=== PATIENT | female | born 1935 | race Caucasian/White ===

== ENCOUNTER → 2017-02-07 | Outpatient (CLI) | payer MEDICARE, BC ==
[~2017-02-07] MED LIST: ACET-3088 PO; ASPI-611 PO; CHOL50006 PO; LISI-126; OMEG-123 PO
--- NOTE | 2017-02-08 10:22 | ECHOF ---
ECHOCARDIOGRAM REPORT DATE OF PROCEDURE February 07, [address] Guillermo Casillas This is a two-dimensional echo with spectral Doppler, color-flow and M-mode. It was obtained in a patient for preop evaluation. Left atrial dimension is normal. Left ventricle end-diastolic dimension is normal. Left ventricle wall thickness is normal. LV systolic function is normal with ejection fraction of 60%. Right atrium is normal. Right ventricle is normal. Aortic root dimension is normal. Mitral valve annulus is calcified. Mitral valve leaflets are normal with no stenosis. Mild mitral regurgitation is present. Aortic valve shows fibrocalcific changes. Opening motion is restricted with increased velocity across the aortic valve. Peak velocity across the aortic valve is 4.33 meters per second with peak gradient of 75 and mean gradient of 44. Aortic valve area is calculated at 1.19 cm2. There is no aortic insufficiency. Tricuspid valve shows mild tricuspid regurgitation with normal estimated pulmonary artery systolic pressure of 31. Pulmonary valve shows mild pulmonary insufficiency. There is no pericardial effusion. IMPRESSION 1. Normal LV systolic function with ejection fraction of 60%. 2. At least moderate aortic insufficiency with aortic valve area of 1.19 cm2. However, it appears to be severe stenosis by gradient. 3. Mitral annulus calcification with mild mitral regurgitation. 4. Mild pulmonary insufficiency. 5. Mild tricuspid regurgitation with estimated pulmonary artery systolic pressure of 31. MTDD
== END ==
LOC: IMA 15:12
PROVIDERS: ATTEND Family Medicine
DX: I08.8 Other rheumatic multiple valve diseases (principal)
CPT/HCPCS: 93306

== ENCOUNTER 2017-02-26 10:35 | Outpatient (CLI) | payer MEDICARE, BC ==
[~2017-02-26] VITALS: Ht 157.5 cm; Wt 75.1 kg
[2017-02-26] VITALS (18 sets, daily range): BP systolic 121–188; BP diastolic 58–91; PULSE 54–76; RESP 13–20; TEMP 98.3; O2SAT 93–100; Ht 157.5 cm; Wt 75.1 kg
[~2017-02-26 10:35] MED LIST changes: +AMLO5TAB2 PO; -LISI-126; +LISI40TA4 PO
--- NOTE | 2017-02-26 10:45 | NUR ---
ADMISSION PATIENT ADMITTED TO ROOM 126 AT THIS TIME. PT AMBULATORY TO ROOM. PT APPEARS IN NO ACUTE DISTRESS. AT BEDSIDE. WILL CONTINUE TO MONITOR.
[2017-02-26] MEDS ORDERED: ASPI325T PO (11:08)
[2017-02-26] MEDS ORDERED: SALINE FLUSH 10ml SYRINGE ONE (12:23)
--- NOTE | 2017-02-26 13:22 | NUR ---
HERIBERTO First phase of recovery from HERIBERTO with CCU staff present is complete. Patient tolerated the procedure well and has recovered quickly, is alert and oriented x 3, on room air with stable vitals. Care transferred back to Geeta MCCANN at this time.
--- NOTE | 2017-02-26 13:33 | NUR ---
CM CM IN TO VISIT PATIENT, SHE IS A&O. IS AT THE BEDSIDE. PATIENT PLANS TO DISCHARGE HOME, DENIES ANY DISCHARGE NEEDS. CM CONTACT INFORMATION PROVIDED. Addendum: 02/26/17 at 1333 by LINDA ANGUIANO RN Amended: Links added.
--- NOTE | 2017-02-26 14:03 | TEEF ---
DATE OF PROCEDURE February 26, 2017 REFERRING PHYSICIAN Guillermo Casillas, DO INDICATION This is a 81-year-old pleasant lady with aortic stenosis/aortic insufficiency and was referred for further evaluation by transesophageal echocardiogram. INFORMED CONSENT Informed consent was obtained after explaining the procedure and the potential risks to the patient who agreed to proceed with the procedure. PROCEDURE 1. Transesophageal echocardiogram. Conscious sedation was performed using Versed and fentanyl. Cetacaine spray was used for pharyngeal anesthesia. Probe was advanced into the esophagus and stomach and images were obtained in multiple planes. Left atrium is dilated. Left ventricle end-diastolic dimension is normal. Left ventricle wall thickness is increased. LV systolic function is normal with ejection fraction of 65%. Right atrium is normal. Right ventricle is normal. Mitral valve appears to be sclerotic with mild to moderate mitral regurgitation. Aortic valve shows fibrocalcific changes with restriction on opening motion. Using planimetry, valve area is measured at 0.46 cm2. Mild aortic insufficiency is present. Tricuspid valve shows mild tricuspid regurgitation. Pulmonary valve shows trace of pulmonary insufficiency. There is no pericardial effusion. There is no thrombus in left atrium, left atrial appendage or left ventricle. Descending thoracic aorta shows mild to moderate atherosclerosis. IMPRESSION 1. Normal LV systolic function with ejection fraction of 65%. 2. Left ventricular hypertrophy. 3. Left atrial dilation. 4. Mitral sclerosis with mild to moderate mitral regurgitation. 5. Severe aortic stenosis with a valve area of 0.46 cm2 by planimetry with mild aortic insufficiency. 6. Mild tricuspid regurgitation. 7. Trace of pulmonary insufficiency. 8. No evidence of sqaud-dr-rhov shunt using agitated saline. 9. 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 [facility]
--- NOTE | 2017-02-26 16:05 | NUR ---
DISMISSAL PATIENT DISMISSED TO HOME FOR SELF-CARE TO THE ER ENTRANCE. PT AMBULATORY. PATIENT'S WAS THE SENIOR TAX MANAGER HOME. STABLE AND ON ROOM AIR AT TIME OF DISMISSAL. IV CATHETER REMOVED BY THIS RN. IV CATHETER TIP INTACT. PERSONAL BELONGINGS AND HOME MEDS SENT WITH PATIENT. ARM BAND REMOVED AND PLACED IN SHRED. D/C INSTRUCTIONS REVIEWED PRIOR TO D/C. TOPICS DISCUSSED INCLUDED: MEDICATIONS, FOLLOW UP APPOINTMENTS, S/S TO REPORT, AND ACTIVITY. BOTH AND PT VERBALIZED UNDERSTANDING.
[2017-02-26] MEDS ORDERED: FENTANYL 100mcg/2ml INJECTION IV ONE (17:48)
[2017-02-26] MEDS ORDERED: MIDAZOLAM 2mg/2ml INJECTION IV ONE (17:48)
--- NOTE | 2017-02-28 09:56 | NUR ---
ATTEMPTED POST HOSPITAL FOLLOW UP PHONE CALL #[phone], NO ANSWER, NO VOICE MESSAGE PICKED UP.
== END 2017-02-26 16:05 | disposition home or self-care (01) ==
LOC: IMA.BED 10:35 → SRG 10:36 → IMA.BED 16:05
PROVIDERS: ATTEND Internal Medicine Cardiovascular Disease
DX: Z01.810 Encounter for preprocedural cardiovascular examination (principal); I08.3 Combined rheumatic disorders of mitral, aortic and tricuspid valves; I70.0 Atherosclerosis of aorta
CPT/HCPCS: 93005; 93312; 93320; 93325; 94770; J2250; J3010

== ENCOUNTER 2017-04-18 07:30 | Inpatient (IN) ==
[~2017-04-18 07:30] MED LIST changes: -ACET-3088 PO; +ACETAMINOPHEN 500 MG TABLET PO ONE; -AMLO5TAB2 PO; -ASPI-611 PO; -CHOL50006 PO; +CLINDAMYCIN PREMIX 900 MG/50 ML BAG IV ONE; +DEXAMETHASONE 4 MG/ML INJECTION IVP ONE; +LIDOCAINE 1% (10mg/ml) 10mL MDV SQ ONE; -LISI40TA4 PO; +METOCLOPRAMIDE 10mg/2ml INJECTION IVP ONE; +NOZIN NASAL SWAB NAS ONE; -OMEG-123 PO; +ONDANSETRON 4 MG/2 ML INJECTION IVP ONE; +TRANEXAMIC ACID 1,000 MG in NS 100 ML IV ONE
[2017-04-18] MEDS ORDERED: EPINEPHrine 0.25 MG, BUPIVACAINE 0.25% PF 30 ML, MORPHINE SULFATE 15 MG in NS 30 ML OPSITE ONE (08:00)
[2017-04-18] MEDS ORDERED: LR 1,000 ML IV SCH (10:20)
[2017-04-18] MEDS ORDERED: FAMOTIDINE PREMIX 20 MG/50 ML BAG IV ONE (10:20)
[2017-04-18] MEDS ORDERED: SALINE FLUSH 10ml SYRINGE IVF PRN (10:20)
[2017-04-18] MEDS ORDERED: VANCOMYCIN 1,000 MG INJECTION ONE (12:54)
--- NOTE | 2017-04-18 13:02 | Anesthesia Preoperative Report ---
Anesthesia Preoperative Record - Date and Time Date: 04/18/17 Preoperative Diagnosis: M17.11 Rt TKA Proposed Procedure: Right Total Knee Replacement NPO Since Date: 04/18/17 NPO Since Time: 00:00 Allergies/Adverse Reactions: Allergies Allergy/AdvReac Type Severity Reaction Status Date / Time doxycycline Allergy Unknown RASH Verified 04/12/17 08:42 Penicillins Allergy Unknown rash Verified 04/12/17 08:42 Sulfa (Sulfonamide Allergy Unknown RASH Verified 04/12/17 08:42 Antibiotics) terbinafine [From Lamisil] AdvReac Unknown Rash Verified 04/18/17 10:37 terbinafine HCl Allergy Unknown RASH Uncoded 04/12/17 08:42 - Vital Signs Vital Signs: Temp Pulse Resp BP Pulse Ox 98.0 F 62 14 180/80 H 96 04/18/17 10:35 04/18/17 10:43 04/18/17 10:35 04/18/17 10:35 04/18/17 10:35 Height and Weight: Height 5 ft 2 in Weight 77.5 kg Body Mass Index 31.2 - Medications Inpatient Medications: Current Medications Lactated Ringer's (Lactated Ringers) 1,000 mls @ 50 mls/hr IV .Q20H BRANDIN Last Admin: 04/18/17 11:06 Dose: 50 mls/hr Sodium Chloride (Iv Flush) 10 - 80 ml IVF PRN PRN PRN Reason: [place] Home Medications: Home Medications Medication Instructions Recorded Confirmed Type Aspirin 81 mg PO DAILY PRN #0 11/10/12 04/17/17 History Acetaminophen [Tylenol Arthritis] 2 tab PO BID PRN #0 tab 01/30/17 04/18/17 History Cholecalciferol [Vit. D-3] 1 cap PO DAILY #0 01/30/17 04/18/17 History [place]-3/Dha/Epa/Fish Oil (Fish Oil 1 cap PO DAILY #0 01/30/17 04/18/17 History 1,360 mg Softgel) Amlodipine Besylate 5 mg PO DAILY #0 tab 02/25/17 04/18/17 History Lisinopril 40 mg PO DAILY #0 tab 02/25/17 04/18/17 History Aspirin 1 tab PO DAILY PRN #0 tab 02/26/17 04/18/17 History - Medical History Respiratory: DENIES: Asthma, Bronchitis, Chronic Obstructive Pulmonary Disease (COPD), Dyspnea, Orthopnea, Pulmonary Embolism, Pneumonia, Upper Respiratory Infection, Pulmonary Edema, Sleep Apnea, Tuberculosis, Other Cardiovascular: Reports: Heart Murmur (benign. cardiac workup performed and cleared), Hypertension Gastrointestional: Reports: Gastroesophageal Reflux Disease (cured with hiatal hernia surgery) Neuro/Musculoskeletal: Denies: HX.MS.OSAR, Back Problems, Cerebrovascular Accident, Depression, Headaches, Loss of Consciousness, Muscle Weakness, Neuromuscular Disorder, Paralysis, Paresthesia, Syncope, Seizures, Other Renal/Endocrine: DENIES: Diabetes Mellitus Type 1, Diabetes Mellitus Type 2, Renal Failure, Dialysis, Thyroid Disease, Weight Loss, Weight Gain, Other Other History: DENIES: Anesthesia Reactions, Now, Blood Transfusions, Chemotherapy , Cancer, Hemophilia, Malignant Hyperthermia, Sickle Cell Disease, Other - Surgical History HEENT Surgeries: Reports: Tonsillectomy Cardiac Surgeries/Treatments: Reports: Cardiac Catheterization (2 WEEKS AGO) GI Surgery/Treatments: Reports: Cholecystectomy, Hernia Repair (incisional hernia repaire with mesh) Reproductive Surgery/Treatment: Reports: Dilation and Curettage, Hysterectomy ( RAVH, BSO, Nick pelvic lymph node dissection w/ peritoneal), Hysteroscopy - Social History Smoking Status: Never smoker Substance Use Type: does not use - Pertinent Findings Laboratory: CBC and BMP 04/18/17 10:29 EKG Rhythm: Normal Sinus Rhythm - Physical Exam Respiratory Exam: Present: lungs clear, bilateral breath sounds equal Cardiovascular Exam: Present: regular rate and rhythm, systolic murmur - Airway Assessment Mallampati Score: II TMD: 3 Fingerbreadths Neck Extension: fair Overall Assessment: no airway concerns - ASA ASA Score: 2 - Plan Anesthesia: General TIVA Regional/Trunk Block: Spinal - Discussion Discussion: Discussed risks/options/alternatives of anesthesia and questions answered. Patient consents. Nursing pain assessment noted. Present for Discussion: spouse Attestation Statement: Prior to the delivery of any anesthetic medication, I examined the patient, developed the plan, obtained the patient's consent and discussed the risk and benefits of the procedure with the patient/guardian. - Additional Information Seen by Anesthesia: Yes
[2017-04-18] MEDS ORDERED: PROPOFOL 20 ML ONE (13:50)
[2017-04-18] MEDS ORDERED: EPHEDRINE 50mg/ml INJECTION ONE (13:52)
--- NOTE | 2017-04-18 13:57 | History & Physical Update ---
- History and Physical Update Date: 04/18/17 Update: I evaluated this patient and found no changes in the history and clinical exam findings. The treatment plan and recommendations are also unchanged from the previous documentation.
[2017-04-18] MEDS ORDERED: PHENYLEPHRINE INJ 10 MG/ML VIAL IV ONE (13:58)
[2017-04-18] MEDS ORDERED: PROPOFOL 500 MG/50 ML VIAL IV ONE (14:26)
[2017-04-18] MEDS ORDERED: VANCOMYCIN 1,000 MG INJECTION IAR ONE (14:46)
--- NOTE | 2017-04-18 14:56 | Operative Note ---
- Procedure Date of Admission: 04/18/17 Side: right Preoperative Diagnosis: knee primary DJD Postoperative Diagnosis: Same as preoperative diagnosis. Operation: total knee arthroplasty (right) Surgeon: Jennifer Carrasco MD Razor Grinder: VAL Stallings Complications: None. Regional/Trunk Block: Spinal Peripheral Nerve Block: Saphenous-Right Estimated Blood Loss: See Anesthesia Record. Fluids: Please see Anesthesia Record. Description of Procedure: Mrs. Rosario and her right knee were identified and marked in the preoperative holding area. She was brought back to the operating suite and placed supine on the operating table. Spinal anesthetic was administered. The operative lower extremity was prepped and draped in a sterile fashion. Timeout was performed. She had a varus deformity which is partially correctable. An anterior midline incision followed by medial parapatellar arthrotomy was performed. The tourniquet was not used until cementing. Hemostasis was obtained with electrocautery. The patella was resurfaced to a size 29. A distal femoral osteotomy was then performed in 5 of valgus using intramedullary guide. The femur was sized at a 4 and rotation set using the epicondylar axis. Distal femoral cuts were performed with a 4-in-1 cutting block. A proximal tibial cut was then made perpendicular to its long axis using an extramedullary guide. A medial release was performed. At this point remaining meniscus and osteophytes were removed and joint cocktail was injected throughout soft tissue. Trial components were placed with a 9 mm spacer. This allowed for full extension and flexion and the patella tracked well. The leg was then exsanguinated and the tourniquet inflated to 250 mmHg. The tibia was then stamped at a size 3 at the proper rotation. The bone was then prepared for cementing and Consuelo Triathalon components were cemented into place and allowed to cure in extension. The tourniquet was then let down and hemostasis obtained with electrocautery. Betadine solution was used during the curing period for 3 minutes. 1 g of vancomycin powder was placed into the joint before the capsulotomy was repaired with #1 Vicryl. I then left my assistant professor of geography close the subcutaneous tissue and skin with 2-0 Vicryl and Monocryl. Dermabond was used on the skin. The drapes were then removed and she was taken to recovery room under the care of anesthesia.
[2017-04-18] MEDS ORDERED: ROPIVACAINE 0.5% (5mg/ml) 30ml INJ ONE (15:27)
--- NOTE | 2017-04-18 15:57 | XRay Report ---
Indication: postoperative image PROCEDURE: XR knee RT 2V: Encounter: Initial Comparison: None Findings: Postoperative changes of right total knee replacement are seen. There is expected postoperative subcutaneous gas. No evidence of hardware failure or acute fracture. No retained radiopaque surgical instruments or sponges. Overlying material causing artifact. Impression: New right total knee prosthesis without evidence of immediate complication. .
[2017-04-18] MEDS: HYDROMORPHONE 2 MG/ML INJECTION IVP PRN ×2 (15:58→16:14)
[2017-04-18] MEDS ORDERED: ASPIRIN 81 MG CHEWABLE TABLET PO PRN (16:45)
[2017-04-18] MEDS ORDERED: DiphenhydrAMINE 50 MG/ML INJECTION IVP PRN (16:45)
[2017-04-18] MEDS ORDERED: NOZIN NASAL SWAB NAS ONE (16:45)
[2017-04-18] MEDS ORDERED: ONDANSETRON 4 MG/2 ML INJECTION IVP PRN (16:45)
[2017-04-18] MEDS ORDERED: DiphenhydrAMINE 25 MG CAPSULE PO PRN (16:45)
[2017-04-18] MEDS ORDERED: LORazepam 1 MG TABLET PO PRN (16:45)
[2017-04-18] MEDS: NS 1,000 ML IV SCH (16:48)
[2017-04-18] MEDS ORDERED: Pharmacy Consult for Fall Risk MC PRN (16:57)
--- NOTE | 2017-04-18 17:11 | Anesthesia Postoperative Note ---
- Date and Time Date: 04/18/17 Time: 17:10 - Status Patient Participated in Evaluation: Patient Participated in Person Vital Signs: Temp Pulse Resp BP Pulse Ox 97.1 F 64 16 130/62 94 04/18/17 16:40 04/18/17 16:55 04/18/17 16:55 04/18/17 16:55 04/18/17 16:55 Respiratory Function: Airway Patent Cardiovascular Function: Regular Pulse EKG Rhythm: Normal Sinus Rhythm Mental Status: Alert and Oriented Hydration: Taking PO Fluids Complications During Recover: None Apparent - Follow-Up Instructions Instructions: Per Surgeon
[2017-04-18] MEDS ORDERED: WARFARIN 4 MG TABLET PO ONE (17:13)
[2017-04-18] MEDS: ENOXAPARIN 40 MG/0.4 ML INJECTION SQ SCH (17:24)
[2017-04-18] MEDS: ACETAMINOPHEN 325 MG TABLET PO SCH ×2 (17:25→21:33)
--- NOTE | 2017-04-18 17:32 | Pharmacy Consult ---
Pharmacy Consult-Warfarin - Consult Information Consult noted for warfarin protocol for Ms Rosario, who is 82 yo and is a post- op orthopedic patient. Goal INR is 1.5-2.5. Will give 4mg po today and continue to monitor. Thank you.
[2017-04-18] MEDS: CLINDAMYCIN PREMIX 900 MG/50 ML BAG IV SCH (19:56)
[2017-04-18] MEDS: TRAMADOL 50 MG TABLET PO PRN (20:14)
[2017-04-18] MEDS: DOCUSATE SODIUM 100 MG CAPSULE PO SCH (20:14)
[2017-04-18] MEDS: NOZIN NASAL SWAB NAS SCH (21:33)
[2017-04-18] MEDS ORDERED: SENNOSIDES 8.6 MG TABLET PO SCH (22:00)
[2017-04-19] MEDS: CLINDAMYCIN PREMIX 900 MG/50 ML BAG IV SCH ×2 (01:41→06:44)
[2017-04-19] MEDS: TRAMADOL 50 MG TABLET PO PRN ×3 (02:29→10:25)
[2017-04-19] MEDS: NOZIN NASAL SWAB NAS SCH ×2 (05:41→14:38)
[2017-04-19] MEDS: NS 1,000 ML IV SCH (07:46)
--- NOTE | 2017-04-19 08:09 | Orthopedic Progress Note ---
Date: Subjective/Severity of Illness: Rebecca is doing great this AM. She is mobile with good tolerance. No CP, cough or SOA. Lovenox - Coumadin bridge in place for DVT coverage. Pain controlled with Ultram. Pt expects discharge later today. Orthopedic Objective PO Vital signs: Temp Pulse Resp BP Pulse Ox 96.2 F L 63 18 127/66 95 04/19/17 07:20 04/19/17 07:20 04/19/17 07:20 04/19/17 07:20 04/19/17 07:20 Height and Weight: Height 5 ft 2 in Weight 170 lb 13.732 oz Body Mass Index 31.2 - Constitutional General Appearance: Present: alert, no acute distress - Respiratory Exam Present: non-labored - Extremities Exam Extremities: Present: pulses intact - Surgical Site Incision: Mepilex dressing intact, no drainage - Neurological Exam Present: no deficits - Psychiatric Exam Present: alert - Labs Result Diagrams: 04/19/17 04:23 04/19/17 04:23 Abnormal lab results 04/18/17 04/19/17 04/19/17 Range/Units 10:29 04:23 04:23 RBC 3.08 L (4.00-5.20) M/MM3 Hgb 9.3 L D (12-16) GM/DL Hct 29.6 L D (36-46) % Lymph % (Auto) 21.2 L (23-45) % Eos % (Auto) 4.4 H (0-4) % BUN 37.0 H (7-17) MG/DL BUN/Creatinine Ratio 46 H (6-26) RATIO Glucose 126 H (65-110) MG/DL H & H 04/18/17 04/19/17 Range/Units 10:29 04:23 Hgb 12.2 9.3 L D (12-16) GM/DL Hct 39.4 29.6 L D (36-46) % Coagulation 04/19/17 Range/Units 04:23 INR 1.10 (0.99-1.21) Orthopedic Assessment and Plan (1) Arthritis of knee, right Status: Acute Assessment and Plan: Coumadin protocol for VTE prophylaxis. SCD's. PT/OT services to improve independent function. Discharge Planning per Case Management. Plan discharge later today. INR's 2x a week. Hospital Course Summary Disclaimer: The visit summary below is not to be considered part of the above Progress Note.
--- NOTE | 2017-04-19 08:23 | Pharmacy Consult ---
Pharmacy Consult-Warfarin - Laboratory Information 04/19/17 04:23 INR 1.10 - Consult Information WARFARIN CONSULT We will give 5mg of warfarin po x1 today at noon. Goal INR 1.5 - 2.0
[2017-04-19] MEDS: DOCUSATE SODIUM 100 MG CAPSULE PO SCH (08:40)
[2017-04-19] MEDS: ACETAMINOPHEN 325 MG TABLET PO SCH ×2 (08:40→12:35)
[2017-04-19] MEDS ORDERED: POLYETHYL GLYCOL 3350 17gm PACKET PO SCH (09:00)
[2017-04-19] MEDS ORDERED: LISINOPRIL 40 MG TABLET PO SCH (09:00)
[2017-04-19] MEDS ORDERED: AMLODIPINE 5 MG TABLET PO SCH (09:00)
[2017-04-19] MEDS ORDERED: WARFARIN 5 MG TABLET PO SCH (12:00)
--- NOTE | 2017-04-19 12:43 | Discharge Summary ---
Discharge Plan - Med Rec/Dispo Fer Instructions: [facility] Ortho Postop Instructions Additional Instructions: HAVE LAB CHECKED AT DR. ESCOBAR'S OFFICE EVERY SATURDAY AND SATURDAY BEGINNING APRIL 22. CONTINUE FOR 4 WEEKS WHILE YOU ARE ON COUMADIN. SCANNING COORDINATOR LOVENOX INJECTIONS AT [facility] IN [place]. BEING DAILY INJECTIONS ON APRIL 20. [facility]ANCED THERAPY ON 04/19/2017 AT 11:20AM FOR PHYSICAL THERAPY EVAL. PHONE [phone] Prescriptions: New Acetaminophen [Tylenol] 650 mg PO QID #100 Enoxaparin Sodium [Lovenox] 40 mg SQ Q24H #5 syr Tramadol [Ultram] 50 - 100 mg PO Q6H PRN #60 PRN Reason: Pain Warfarin [Coumadin] 2 tab PO NOON #60 tab Continue Cholecalciferol [Vit. D-3] 1 cap PO DAILY #0 Lisinopril 40 mg PO DAILY #0 tab Amlodipine Besylate 5 mg PO DAILY #0 tab Discontinued [place]-3/Dha/Epa/Fish Oil (Fish Oil 1,360 mg Softgel) 1 cap PO DAILY #0 Acetaminophen [Tylenol Arthritis] 2 tab PO BID PRN #0 tab PRN Reason: PAIN Aspirin 1 tab PO DAILY PRN #0 tab PRN Reason: HEADACHE Aspirin 81 mg PO DAILY PRN #0 PRN Reason: HEADACHE - Disposition 01 Discharged Home, Self-Care
--- NOTE | 2017-04-19 12:53 | Discharge Summary ---
Orthopedic Discharge Info Date of admission: 04/18/17 09:22 Primary care physician: Guillermo Casillas DO Attending Physician: Ziggy Carrasco MD Consults: 04/18/17 10:20 Consult to Anesthesiology [CONS] Routine Consulting Provider: VAL Jolley Reason For Exam: Preoperative Assessment 04/18/17 16:45 Case Management Consult [CONS] Routine Reason For Exam: Discharge Planning DME-Walker [CONS] Routine Height: 5 ft 2 in Weight: 170 lb 13.732 oz Comment: change dressing in 2 weeks Pharmacy Consult [CONS] Routine Pharmacy Consult: Coumadin/Warfarin Total Joint Outpatient Therapy [CONS] Routine Comment: change dressing in 2 weeks - Discharge Diagnosis (1) Arthritis of knee, right Status: Acute - Procedures Procedures: Right TKA - Laboratory Result Diagrams: 04/19/17 04:23 04/19/17 04:23 Laboratory: Abnormal lab results 04/19/17 04/19/17 Range/Units 04:23 04:23 RBC 3.08 L (4.00-5.20) M/MM3 Hgb 9.3 L D (12-16) GM/DL Hct 29.6 L D (36-46) % BUN 37.0 H (7-17) MG/DL BUN/Creatinine Ratio 46 H (6-26) RATIO Glucose 126 H (65-110) MG/DL H & H 04/18/17 04/19/17 Range/Units 10:29 04:23 Hgb 12.2 9.3 L D (12-16) GM/DL Hct 39.4 29.6 L D (36-46) % Coagulation 04/19/17 Range/Units 04:23 INR 1.10 (0.99-1.21) Orthopedic Discharge HPI - HPI Comments This patient was admitted for elective surgical tx of end stage degenerative joint disease that failed to respond to conservative treatment. Further details of this is found in the admission H&P. Orthopedic Hospital Course Hospital course: 04/19/17 12:52 After appropriate preoperative clearance and signing of operative consent, the patient was given IV antibiotics, according to orthopedic protocol. The patient was taken to the operating room and underwent elective joint arthroplasty. Following surgery, antibiotics were discontinued less than 24 hours according to joint protocol. Appropriate anticoagulants were initiated and SCDs added for DVT prevention. The dressing was clean, dry, and intact. Pain control was obtained via multimodal approach. Bowel motivation addressed with scheduled and PRN medications. Early mobilization was initiated through PT services. Discharge arrangements made by a collaborative effort between the patient and Case Management. Follow-up is scheduled in 2-3 weeks. Discharge instructions given by orthopedic providers and nursing staff at discharge. Discharge condition was good. Ongoing care required?: No - Postoperative Anemia patient received IVF, labs monitored daily, no intervention required, HGB drop- acceptable Discharge Plan - Med Rec/Dispo Truven Instructions: [facility] Ortho Postop Instructions Additional Instructions: HAVE LAB CHECKED AT DR. CASILLAS'S OFFICE EVERY SATURDAY AND SATURDAY BEGINNING APRIL 22. CONTINUE FOR 4 WEEKS WHILE YOU ARE ON COUMADIN. MASTER STEAM YACHT LOVENOX INJECTIONS AT [facility] IN [place]. BEING DAILY INJECTIONS ON APRIL 20. ADVANCED THERAPY ON 04/19/2017 AT 11:20AM FOR PHYSICAL THERAPY EVAL. PHONE Prescriptions: New Acetaminophen [Tylenol] 650 mg PO QID #100 Enoxaparin Sodium [Lovenox] 40 mg SQ Q24H #5 syr Tramadol [Ultram] 50 - 100 mg PO Q6H PRN #60 PRN Reason: Pain Warfarin [Coumadin] 2 tab PO NOON #60 tab Continue Cholecalciferol [Vit. D-3] 1 cap PO DAILY #0 Lisinopril 40 mg PO DAILY #0 tab Amlodipine Besylate 5 mg PO DAILY #0 tab Discontinued [place]-3/Dha/Epa/Fish Oil (Fish Oil 1,360 mg Softgel) 1 cap PO DAILY #0 Acetaminophen [Tylenol Arthritis] 2 tab PO BID PRN #0 tab PRN Reason: PAIN Aspirin 1 tab PO DAILY PRN #0 tab PRN Reason: HEADACHE Aspirin 81 mg PO DAILY PRN #0 PRN Reason: HEADACHE - Disposition 01 Discharged Home, Self-Care
[2017-04-19] MEDS: ENOXAPARIN 40 MG/0.4 ML INJECTION SQ SCH (14:38)
[2017-04-19] MEDS ORDERED: SENNOSIDES 8.6 MG TABLET PO PRN (15:13)
[2017-04-20] MEDS ORDERED: BISACODYL 10 MG SUPPOSITORY RECTALLY SCH (20:00)
== END 2017-04-19 14:55 | disposition home or self-care (01) | DRG 470 ==
LOC: SRG 09:22
PROVIDERS: ADMIT Orthopaedic Surgery; ATTEND Orthopaedic Surgery